=== PATIENT | male | born 1985 | race Caucasian/White ===

== ENCOUNTER 2023-09-24 07:28 | Emergency (ER) | payer SELFPAY ==
[2023-09-24 07:30] VITALS: BP 170/100
[2023-09-24 07:38] VITALS: BMI 27.7
--- NOTE | 2023-09-24 07:48 | EDRN ---
Floyd LEWIS currently at the pts bedside speaking with the pt
--- NOTE | 2023-09-24 09:01 | ED.GENMED ---
History of Present Illness
General
Chief Complaint: Musculo-Skeletal Complaint
Source: patient
Exam Limitations: none
Time Seen by Provider: 09/24/23 07:36
Nursing documentation reviewed up to this point in time: agreed with
Travel History
Have you had any contact with someone who has COVID-19?: No
Do you have any symptoms of coronavirus? Fever > 100 degrees, chills, cough, shortness of breath, sore throat, loss of taste or smell, muscle aches, or headache?: No
History of Present Illness
History of Present Illness:
37-year-old male with past medical history of hypertension hyperlipidemia presenting to the emergency department today with concerns of right ankle discomfort after twisting his ankle 3 days ago ongoing discomfort and swelling mainly to the medial
aspect. Denies numbness weakness or additional concerns
Review of Systems
Review of Systems
Allergies reviewed?: Yes
All Other Systems: ROS reviewed and negative except as documented in HPI and ROS
Phy Exam
Physical Exam
Physical Exam:
GENERAL: Alert , in no apparent distress
EYE: pupils equal and reactive
NECK: Supple, no significant adenopathy.
ENT: o/p clr, mmm.
CARDIAC: Regular rate and rhythm .
LUNGS: Clear breath sounds bilaterally, no acute respiratory distress, no wheezes/rales/rhonchi
ABDOMEN: Soft, without focal tenderness, no r/g, no cvat
NEUROLOGICAL: Alert and oriented, no focal neuro deficits
SKIN: Warm and dry, skin intact.
MUSCULOSKELETAL: Swelling throughout the ankle maximal to the medial malleolus tenderness palpation to the medial malleolus into the area anterior to it minimal pain to the lateral malleolus forefoot midfoot and toes. No tenderness with the
tib-fib, well perfused.
PSYCH: Normal and appropriate interaction.
Course
Orders/Labs/Results
Orders:
Orders
09/24/23 07:34
Ankle, Right 3 view CR [CR Ankle - Right Min 3 Views *] Urgent
Comment:
Reason For Exam: pain and swelling
09/24/23 09:01
Crutches-Treatment ONCE
boot [Ortho Boot Right- Treatment] ONCE
Short or tall?: Tall
Vital Signs
Initial and Last Documented VS:
Initial Vital Signs
Temp Pulse Resp BP Pulse Ox
98.4 F 88 20 170/100 100
09/24/23 07:30 09/24/23 07:30 09/24/23 07:30 09/24/23 07:30 09/24/23 07:30
Last Documented Vital Signs
Temp Pulse Resp BP Pulse Ox
98.4 F 88 20 170/100 100
09/24/23 07:30 09/24/23 07:30 09/24/23 07:30 09/24/23 07:30 09/24/23 07:30
MDM/Problems Addressed
MDM/Problems Addressed:
37-year-old male presenting to the emergency department today with concerns of right-sided ankle discomfort after rolling his ankle 3 days ago worsening pain since. Able to walk but feels unstable. X-ray without signs of obvious fracture. Patient
was given a boot and crutches considering he is having significant difficulty weightbearing with recommendations for close orthopedic follow-up as needed.
*Critical Care Note
Total Time (30-74mins, 75-104mins- exclusive of procedures): Not Applicable
ED Attending Note
-
Portions of this chart may have been created with voice recognition software.� Occasional wrong word or��sound alike� substitutions may have occurred due to the inherent limitations of voice recognition software.
Discharge Plan
Departure
Patient Disposition: Home (Routine Discharge)
Date of Disposition: 09/24/23
Time of Disposition: 09:03
Patient with high blood pressure during this ER visit?: No
Condition: Good
Covid-19: Not Applicable
Discharge Problem:
Ankle sprain
Instructions: Ankle Sprain (DC)
Prescriptions:
No Action
No Current Medications
0
Referrals:
Debi Templeton, [Active] - Follow up in 5-7 days
Yuri Mora MD [Family Provider] -
Stand Alone Forms: Return to Work
Interventions
Interventions:
*Risk Screen - Suicide Last Done: 09/24/23 07:30
*General Assessment Last Done: 09/24/23 07:30
*Neglect/Abuse Screening Last Done: 09/24/23 07:30
ED- Fall Risk Assessment Last Done: 09/24/23 07:38
*ED COVID-19 Vaccine History Last Done: 09/24/23 07:38
ED-Musculoskeletal Assessment Last Done: 09/24/23 07:38
Discharge Date and Time
Print Language: AMHARIC
== END 2023-09-24 09:20 | disposition home or self-care (01) ==
LOC: EMR 07:28
PROVIDERS: EMERGENCY PHYSICIAN Emergency Medicine; FAMILY PHYSICIAN Family Medicine
DX: S93.401A Sprain of unspecified ligament of right ankle, initial encounter (principal); X50.1XXA Overexertion from prolonged static or awkward postures, initial encounter; I10 Essential (primary) hypertension; E78.5 Hyperlipidemia, unspecified
CPT/HCPCS: 99283; 73610

== ENCOUNTER 2024-03-03 10:51 | Emergency (ER) | payer SELFPAY ==
[2024-03-03 10:52] VITALS: BP 166/100
--- NOTE | 2024-03-03 11:57 | ED.GENMED ---
History of Present Illness
General
Chief Complaint: Musculo-Skeletal Complaint
Source: patient
Exam Limitations: none
Time Seen by Provider: 03/03/24 11:11
Nursing documentation reviewed up to this point in time: agreed with
History of Present Illness
History of Present Illness:
38 y/o M with h/o previous ankle injury
was at work today and was walking up the hill says he dorsiflexed his ankle and felt a pop
has pain and swelling laterally with dorsiflexion
no weakness/numbness/tingling
able to partially weight bear
was wearing high ankle work boots
Past History
Past History
ED Past Medical History: None
ED Past Surgical History: None
Social History
Tobacco: Non-smoker
Alcohol: None
Drug: None
Personal:
Living: with family
Employment: Employed
Review of Systems
Review of Systems
Allergies reviewed?: Yes
All Other Systems: Not applicable
Phy Exam
Physical Exam
Physical Exam:
GENERAL: Alert , in no apparent distress, comfortable at rest
HEAD: NCAT
CV: 2+ DP PULSES B/L
NEUROLOGICAL: Alert and oriented, no focal neuro deficits, , 5/5 strength, sensation intact, ambulation slight limp right leg
SKIN: Warm and dry,
MUSCULOSKELETAL: mild STS right ankle with tenderness to malleolus laterally; pain with inversion and eversion;
no tenderness at the base of the 5th metatarsal, no other foot tenderness
no knee/prox tib/fib tenderness, full painless ROM;
PSYCH: Normal and appropriate interaction.
Course
Orders/Labs/Results
Orders:
Orders
03/03/24 10:54
Ankle, Right 3 view CR [CR Ankle - Right Min 3 Views *] Urgent
Comment:
Reason For Exam: rolled right ankle going up hill today
Vital Signs
Initial and Last Documented VS:
Initial Vital Signs
Temp Pulse Resp BP Pulse Ox
98.6 F 82 16 166/100 96
03/03/24 10:52 03/03/24 10:52 03/03/24 10:52 03/03/24 10:52 03/03/24 10:52
Last Documented Vital Signs
Temp Pulse Resp BP Pulse Ox
98.6 F 70 16 137/93 97
03/03/24 10:52 03/03/24 12:04 03/03/24 12:04 03/03/24 12:04 03/03/24 12:04
MDM/Problems Addressed
Differential Diagnosis Includes:
ankle sprain
MDM/Problems Addressed:
38 y/o M
righ tankle pain after walking up hill felt pop laterally
pain and swelling lateral mall
full rom but pain with dorsiflexion
able to ambulate
xrays indep reivewed, no fx, +sts
air cast
has crutches at home
*Critical Care Note
Total Time (30-74mins, 75-104mins- exclusive of procedures): Not Applicable
ED Attending Note
-
Portions of this chart may have been created with voice recognition software.� Occasional wrong word or��sound alike� substitutions may have occurred due to the inherent limitations of voice recognition software.
Discharge Plan
Departure
Patient Disposition: Home (Routine Discharge)
Date of Disposition: 03/03/24
Time of Disposition: 12:02
Patient with high blood pressure during this ER visit?: No
Condition: Fair
Covid-19: Not Applicable
Discharge Problem:
Right ankle sprain
Instructions: Sprain (DC)
Prescriptions:
No Action
No Current Medications
0
Referrals:
UNKNOWN - PT DOES,NOT KNOW [Family Provider] -
Stand Alone Forms: Return to Work
Activity Restrictions/Additional Instructions:
You likely sprained your ankle.
Rested, ice, elevate and use the Airc[employer] today. If you are not feeling well enough to walk you can return to work tomorrow light duty for 1 week.
Take ibuprofen every 8 hours as needed.
Interventions
Interventions:
*Risk Screen - Suicide Last Done: 03/03/24 10:52
*General Assessment Last Done: 03/03/24 11:45
*Neglect/Abuse Screening Last Done: 03/03/24 10:52
ED- Fall Risk Assessment Last Done: 03/03/24 12:18
*ED COVID-19 Vaccine History Last Done: 03/03/24 11:45
*Nursing Disposition Last Done: 03/03/24 12:18
ED-Musculoskeletal Assessment Last Done: 03/03/24 11:45
Discharge Date and Time
Discharge Date/Time: 03/03/24 12:19
Print Language: BRITISH
[2024-03-03 12:04] VITALS: BP 137/93
== END 2024-03-03 12:19 | disposition home or self-care (01) ==
LOC: EMR 10:51
PROVIDERS: EMERGENCY PHYSICIAN Emergency Medicine
DX: S93.401A Sprain of unspecified ligament of right ankle, initial encounter (principal); X50.1XXA Overexertion from prolonged static or awkward postures, initial encounter; Y93.01 Activity, walking, marching and hiking; I10 Essential (primary) hypertension; E78.5 Hyperlipidemia, unspecified
CPT/HCPCS: 99283; 29515; 73610